=== PATIENT | female | born 1990 | race Caucasian/White ===

== ENCOUNTER 2018-04-05 08:43 | Emergency (ER) | payer MEDICAID | END 2018-04-05 09:55 | disposition home or self-care (01) | LOC: MADERS 08:43 | DX: J02.9 Acute pharyngitis, unspecified (principal) | CPT/HCPCS: 87804; 99283 ==

== ENCOUNTER 2018-06-12 11:14 | Emergency (ER) | payer MEDICAID ==
[2018-06-12 11:47] LABS: Bilirubin Small (Negative); Blood, Urine Negative (Negative); Glucose, Urine (Dipstick) 100 mg/dL (Negative); Leukocyte Large (Negative); Nitrite Positive (Negative); Protein, Urine (Dipstick) 30 mg/dL (Neg-Trace)
[2018-06-12 11:48] LABS: Clarity Clear (Clear); RBC/HPF 0-3 HPF (0-3); WBC/HPF 0-3 HPF (0-3)
[2018-06-12 11:49] LABS: Bacteria/HPF Rare-Few HPF (None Seen); Pregnancy Test - Urine (BHCG) Negative (Negative)
[2018-06-12 11:50] LABS: Pregu Control Background? CLEAR/WHITE (CLR/WHITE); Pregu Control Bar Appear? YES (CONTROL BAR)
[2018-06-12] MEDS ORDERED: Ibuprofen 800 MG TAB ONE (11:52)
== END 2018-06-12 12:05 | disposition home or self-care (01) ==
LOC: MADERS 11:14
DX: S39.82XA Other specified injuries of lower back, initial encounter (principal); Z71.6 Tobacco abuse counseling; F17.210 Nicotine dependence, cigarettes, uncomplicated; X58.XXXA Exposure to other specified factors, initial encounter
CPT/HCPCS: 81003; 81015; 81025; 87086; 99406

== ENCOUNTER 2019-03-14 06:56 | Emergency (ER) | payer BC ==
[2019-03-14] MEDS ORDERED: Ketorolac Tromethamine 30 MG/ML VIAL ONE (07:23)
[2019-03-14] MEDS ORDERED: Ondansetron PF 4 MG/2 ML Vial ONE (07:23)
[2019-03-14] MEDS ORDERED: Sodium Chloride 0.9% 1,000 ML ONE (07:23)
[2019-03-14 07:38] LABS: #Basophils 0.1 thou/uL (0.0-0.2); #Eosinphils 0.1 thou/uL (0.0-0.7); #Lymphocytes 2.1 thou/uL (1.20-3.40); #Monocytes 0.6 thou/uL (0.11-0.59); #Neutrophils 5.9 thou/uL (1.40-6.50); %Basophils 0.7 % (0.0-1.0); %Eosinophils 1.3 % (0.0-10.0); %Lymphocytes 23.7 % (21.0-51.0); %Monocytes 6.6 % (0.0-10.0); %Neutrophils 67.8 % (42.0-75.0); Hemoglobin 14.7 g/dL (12.0-16.0); Mean Corpuscular HGB CONC 32.7 g/dL (32.0-36.0); Mean Corpuscular Hemoglobin 28.2 pg (27.0-31.0); Mean Corpuscular Volume 86.1 fL (78.0-98.0); Mean Platelet Volume 6.8 fL (7.4-10.4); Platelet Count 214 thou/uL (130-400); RBC Distribution Width 12.2 % (11.5-14.5); Red Blood Cell (RBC) Count 5.21 mill/uL (4.20-5.40); White Blood Cell (WBC) Count 8.7 thou/uL (4.8-10.8)
[2019-03-14 07:48] LABS: Bilirubin Negative (Negative); Blood, Urine Trace (Negative); Clarity Clear (Clear); Glucose, Urine (Dipstick) Negative (Negative); Leukocyte Trace (Negative); Nitrite Negative (Negative); Protein, Urine (Dipstick) Negative (Neg-Trace); Urobilinogen 0.2 mg/dL (Less than 2)
[2019-03-14 07:50] LABS: BHCG - Serum Negative (NEGATIVE); Pregs Control Background? CLEAR/WHITE (CLR/WHITE); Pregs Control Bar Appear? YES (CONTROL BAR)
[2019-03-14] MEDS ORDERED: Mag-Al Plus 1200 MG/1200 MG/120 MG/30 ML UDCUP ONE (07:56)
[2019-03-14] MEDS ORDERED: Lidocaine Viscous Sol 2% 15 ml UD Cup ONE (07:56)
[2019-03-14 07:58] LABS: ALT (SGPT) 15 U/L (8-55); AST (SGOT) 12 U/L (5-34); Albumin 4.1 g/dL (3.5-5.0); Alkaline Phosphatase 59 U/L (40-110); Anion Gap 12 mmol/L (10-20); BUN (Urea Nitrogen) 10 mg/dL (7.0-18.7); Bilirubin, Total 0.4 mg/dL (0.2-1.2); CK (CPK) 45 U/L (29-168); Calc. Creatinine Clearance 0 mL/min (70-130); Calcium 9.1 mg/dL (7.8-10.44); Carbon Dioxide 24 mmol/L (22-29); Chloride 107 mmol/L (98-107); Estimated GFR-MDRD 87; Globulin 2.9 g/dL (2.4-3.5); Glucose 101 mg/dL (70-105); Lipase 36 U/L (8-78); Sodium 139 mmol/L (136-145)
[2019-03-14 08:02] LABS: Bacteria/HPF Rare-Few HPF (None Seen); RBC/HPF 0-3 HPF (0-3); WBC/HPF 0-3 HPF (0-3)
--- NOTE | 2019-03-14 08:06 | RAD ---
PORTABLE CHEST 1 VIEW: DATE: 03/14/2019. TIME: 7:37 a.m. HISTORY: Chest pain. FINDINGS: Comparison is made with the exam of 01/01/2014. The heart size is normal. The lungs are expanded without focal areas of consolidation, pneumothorace s, or pleural effusions. IMPRESSION: No radiographic evidence of acute cardiopulmonary process. POS: OFF
== END 2019-03-14 08:39 | disposition home or self-care (01) ==
LOC: MADERS 06:56
DX: R07.9 Chest pain, unspecified (principal); R11.2 Nausea with vomiting, unspecified; F17.210 Nicotine dependence, cigarettes, uncomplicated
CPT/HCPCS: 71045; 80053; 81003; 81015; 82550; 83690; 84484; 84703; 85025; 93005; 94640; 96361; 96374; 96375; J1885; J2405; J7050; J7620

== ENCOUNTER 2019-08-26 13:03 | Emergency (ER) | payer MEDICAID, SELFPAY ==
--- NOTE | 2019-08-26 14:09 | RAD ---
PORTABLE CHEST ONE VIEW: 08/26/19 at 1:53 p.m. HISTORY: Cough. COMPARISON: 03/14/19. FINDINGS: The heart size is normal. The lungs are expanded without lobar consolidation, pneumothoraces or pleur al effusions. IMPRESSION: No radiographic evidence of acute cardiopulmonary process. POS: TPC
== END 2019-08-26 14:25 | disposition home or self-care (01) ==
LOC: MADERS 13:03
DX: J20.9 Acute bronchitis, unspecified (principal); F17.210 Nicotine dependence, cigarettes, uncomplicated; F41.9 Anxiety disorder, unspecified
CPT/HCPCS: 71045; 87804

== ENCOUNTER 2019-12-10 21:22 | Emergency (ER) | payer SELFPAY ==
[2019-12-10 22:25] LABS: #Basophils 0.1 thou/uL (0.0-0.2); #Eosinphils 0.2 thou/uL (0.0-0.7); #Lymphocytes 4.4 thou/uL (1.20-3.40); #Monocytes 0.5 thou/uL (0.11-0.59); #Neutrophils 4.8 thou/uL (1.40-6.50); %Basophils 1.5 % (0.0-1.0); %Eosinophils 1.5 % (0.0-10.0); %Lymphocytes 43.9 % (21.0-51.0); %Monocytes 5.2 % (0.0-10.0); Hemoglobin 13.1 g/dL (12.0-16.0); Mean Corpuscular HGB CONC 31.5 g/dL (32.0-36.0); Mean Corpuscular Hemoglobin 27.4 pg (27.0-31.0); Mean Platelet Volume 7.1 fL (7.4-10.4); Platelet Count 264 thou/uL (130-400); RBC Distribution Width 13.2 % (11.5-14.5); Red Blood Cell (RBC) Count 4.78 mill/uL (4.20-5.40)
[2019-12-10] MEDS ORDERED: Lorazepam 2 MG/ML VIAL ONE (22:28)
[2019-12-10] MEDS ORDERED: Ketorolac Tromethamine 30 MG/ML VIAL ONE (22:28)
[2019-12-10 22:39] LABS: ALT (SGPT) 14 U/L (8-55); AST (SGOT) 15 U/L (5-34); Alkaline Phosphatase 71 U/L (40-110); Anion Gap 15 mmol/L (10-20); BUN (Urea Nitrogen) 7 mg/dL (7.0-18.7); Bilirubin, Total Less than 0.2 mg/dL (0.2-1.2); Calc. Creatinine Clearance 0 mL/min (70-130); Carbon Dioxide 23 mmol/L (22-29); Chloride 107 mmol/L (98-107); Estimated GFR-MDRD 86; Globulin 2.5 g/dL (2.4-3.5); Glucose 100 mg/dL (70-105); Potassium 3.6 mmol/L (3.5-5.1); Protein, Total 6.5 g/dL (6.0-8.3); Sodium 141 mmol/L (136-145)
--- NOTE | 2019-12-10 23:40 | RAD ---
EXAM: CHEST ONE VIEW HISTORY: Chest pain COMPARISON: 08/26/2019 FINDINGS: The cardiac silhouette and pulmonary vasculature is within normal limits. The lungs are clear. The os seous structures are intact. Chest is stable compared to prior exam. IMPRESSION: No acute cardiopulmonary process.
== END 2019-12-10 23:15 | disposition home or self-care (01) ==
LOC: MADERS 21:22
DX: R07.89 Other chest pain (principal); F41.9 Anxiety disorder, unspecified; F17.210 Nicotine dependence, cigarettes, uncomplicated
CPT/HCPCS: 71045; 80053; 84484; 85025; 85379; 93005; J1885; J2060

== ENCOUNTER 2020-07-14 21:29 | Emergency (ER) | payer SELFPAY ==
[2020-07-14 22:13] LABS: Pregnancy Test - Urine (BHCG) Negative (Negative); Pregu Control Background? CLEAR/WHITE (CLR/WHITE); Pregu Control Bar Appear? YES (CONTROL BAR); Specific Gravity 1.024 (1.002-1.036)
--- NOTE | 2020-07-14 22:19 | RAD ---
RADIOGRAPH CHEST 1 VIEW: DATE: 07/14/2020 HISTORY: 30-year-old female with dyspnea FINDINGS: There are no airspace densities, pulmonary edema, pneumothorax, or cardiomegaly. The lateral costophr enic angles are sharp. IMPRESSION: No acute cardiopulmonary findings.
[2020-07-14] MEDS ORDERED: Lorazepam 2 MG/ML VIAL ONE (22:31)
== END 2020-07-14 22:54 | disposition home or self-care (01) ==
LOC: MADERS 21:29
DX: F41.9 Anxiety disorder, unspecified (principal); F43.0 Acute stress reaction; F17.210 Nicotine dependence, cigarettes, uncomplicated
CPT/HCPCS: 71045; 81025; 96372; J2060

== ENCOUNTER 2020-08-20 23:16 | Emergency (ER) | payer MEDICAID, SELFPAY ==
[2020-08-20 23:53] LABS: Bilirubin Negative (Negative); Blood, Urine Large (Negative); Clarity Cloudy (Clear); Glucose, Urine (Dipstick) Negative (Negative); Ketone, Urine Negative (Negative); Leukocyte Moderate (Negative); Nitrite Negative (Negative); Protein, Urine (Dipstick) 100 mg/dL (Neg-Trace); Specific Gravity, Urine 1.025 (1.005-1.030); Urobilinogen 0.2 mg/dL (Less than 2)
[2020-08-20 23:55] LABS: Bacteria/HPF 1+ HPF (None Seen); Mucous/LPF 2+ LPF (<2+); WBC/HPF Greater than 50 HPF (0-3)
[2020-08-21] MEDS ORDERED: Cephalexin 500 MG CAP ONE (00:09)
== END 2020-08-21 00:24 | disposition home or self-care (01) ==
LOC: MADERS 23:16
DX: N39.0 Urinary tract infection, site not specified (principal); F17.210 Nicotine dependence, cigarettes, uncomplicated
CPT/HCPCS: 81003; 81015; 99283

== ENCOUNTER 2020-11-21 09:10 | Emergency (ER) | payer MEDICAID ==
[2020-11-22 11:37] LABS: SARS-CoV-2 PCR by NAA Not Detected (NotDetected)
== END 2020-11-21 10:11 | disposition home or self-care (01) ==
LOC: MADERS 09:10
DX: B34.9 Viral infection, unspecified (principal); J06.9 Acute upper respiratory infection, unspecified; F17.210 Nicotine dependence, cigarettes, uncomplicated; Z79.899 Other long term (current) drug therapy
CPT/HCPCS: 87804; 99283; U0003; U0005

== ENCOUNTER 2021-03-17 17:09 | Emergency (ER) | payer MEDICAID, SELFPAY ==
[2021-03-17 17:40] LABS: #Basophils 0.1 thou/uL (0.0-0.2); #Eosinphils 0.1 thou/uL (0.0-0.7); %Basophils 1.4 % (0.0-1.0); Mean Corpuscular Volume 88.8 fL (78.0-98.0)
[2021-03-17 17:53] LABS: Acetaminophen Less than 6.0 mcg/mL (10.0-30.0); Alcohol Less than 10 mg/dL (Less than 10); Salicylate Less than 8.0 mg/dL (15.0-30.0)
[2021-03-17 17:55] LABS: ALT (SGPT) 10 U/L (8-55); AST (SGOT) 11 U/L (5-34); Alkaline Phosphatase 64 U/L (40-110); Anion Gap 14 mmol/L (10-20); BUN (Urea Nitrogen) 10 mg/dL (7.0-18.7); Bilirubin, Total 0.4 mg/dL (0.2-1.2); Calc. Creatinine Clearance 0 mL/min (70-130); Calcium 9.4 mg/dL (7.8-10.44); Carbon Dioxide 21 mmol/L (22-29); Chloride 108 mmol/L (98-107); Globulin 2.9 g/dL (2.4-3.5); Glucose 88 mg/dL (70-105); Magnesium 2.2 mg/dL (1.6-2.6); Potassium 3.7 mmol/L (3.5-5.1); Protein, Total 6.9 g/dL (6.0-8.3); Sodium 139 mmol/L (136-145)
[2021-03-17 18:13] LABS: #Lymphocytes 3.3 thou/uL (1.20-3.40); #Monocytes 0.6 thou/uL (0.11-0.59); #Neutrophils 6.3 thou/uL (1.40-6.50); %Eosinophils 1.2 % (0.0-10.0); %Lymphocytes 31.4 % (21.0-51.0); %Monocytes 5.5 % (0.0-10.0); %Neutrophils 60.5 % (42.0-75.0); Hemoglobin 14.9 g/dL (12.0-16.0); Mean Corpuscular HGB CONC 31.6 g/dL (32.0-36.0); Mean Corpuscular Hemoglobin 28.1 pg (27.0-31.0); Mean Platelet Volume 7.2 fL (7.4-10.4); Platelet Count 263 thou/uL (130-400); RBC Distribution Width 12.4 % (11.5-14.5); Red Blood Cell (RBC) Count 5.29 mill/uL (4.20-5.40); White Blood Cell (WBC) Count 10.5 thou/uL (4.8-10.8)
[2021-03-17 18:33] LABS: Amphetamine Detected (NotDetected); Barbiturates Screen Not Detected (NotDetected); Benzodiazepine Screen Detected (NotDetected); Cocaine Metabolite Screen Not Detected (NotDetected); Medtox Control Line Valid? VALID (VALID); Methadone Not Detected (NotDetected); Methamphetamine Not Detected (NotDetected); Opiate Screen Not Detected (NotDetected); Oxycodone Screen Not Detected (NotDetected); Phencyclidine (PCP) Not Detected (NotDetected); THC/Cannabinoid Screen Not Detected (NotDetected); Tricyclic Screen Not Detected (NotDetected)
== END 2021-03-17 18:33 | disposition home or self-care (01) ==
LOC: MADERS 17:09
DX: F41.9 Anxiety disorder, unspecified (principal); R07.89 Other chest pain; F17.210 Nicotine dependence, cigarettes, uncomplicated; Z79.899 Other long term (current) drug therapy
CPT/HCPCS: 71045; 80053; 80306; 80307; 83735; 84484; 85025; 93005

== ENCOUNTER 2021-04-28 05:30 | Emergency (ER) | payer MEDICAID, SELFPAY ==
[2021-04-28 05:51] LABS: #Basophils 0.1 thou/uL (0.0-0.2); #Eosinphils 0.1 thou/uL (0.0-0.7); #Lymphocytes 1.9 thou/uL (1.20-3.40); #Monocytes 0.4 thou/uL (0.11-0.59); #Neutrophils 4.1 thou/uL (1.40-6.50); %Basophils 1.3 % (0.0-1.0); %Eosinophils 1.6 % (0.0-10.0); %Lymphocytes 28.5 % (21.0-51.0); %Monocytes 6.7 % (0.0-10.0); %Neutrophils 61.9 % (42.0-75.0); Hemoglobin 14.5 g/dL (12.0-16.0); Mean Corpuscular HGB CONC 32.1 g/dL (32.0-36.0); Mean Corpuscular Volume 87.4 fL (78.0-98.0); Platelet Count 226 thou/uL (130-400); RBC Distribution Width 12.5 % (11.5-14.5); Red Blood Cell (RBC) Count 5.18 mill/uL (4.20-5.40); White Blood Cell (WBC) Count 6.6 thou/uL (4.8-10.8)
[2021-04-28 06:00] LABS: BHCG - Serum Negative (NEGATIVE); Pregs Control Background? CLEAR/WHITE (CLR/WHITE); Pregs Control Bar Appear? YES (CONTROL BAR)
[2021-04-28] MEDS ORDERED: Ketorolac Tromethamine 30 MG/ML VIAL ONE (06:00)
[2021-04-28] MEDS ORDERED: Ondansetron PF 4 MG/2 ML Vial ONE (06:00)
[2021-04-28] MEDS ORDERED: Lactated Ringer's 1,000 ML ONE (06:00)
[2021-04-28 06:12] LABS: ALT (SGPT) 14 U/L (8-55); AST (SGOT) 14 U/L (5-34); Albumin 3.9 g/dL (3.5-5.0); Alkaline Phosphatase 65 U/L (40-110); Anion Gap 14 mmol/L (10-20); BUN (Urea Nitrogen) 8 mg/dL (7.0-18.7); Bilirubin, Total 0.7 mg/dL (0.2-1.2); Calc. Creatinine Clearance 0 mL/min (70-130); Calcium 8.5 mg/dL (7.8-10.44); Carbon Dioxide 22 mmol/L (22-29); Chloride 106 mmol/L (98-107); Globulin 2.7 g/dL (2.4-3.5); Glucose 100 mg/dL (70-105); Potassium 3.9 mmol/L (3.5-5.1); Protein, Total 6.6 g/dL (6.0-8.3); Sodium 138 mmol/L (136-145)
[2021-04-28 07:11] LABS: Bacteria/HPF 1+ HPF (None Seen); Bilirubin Negative (Negative); Blood, Urine Negative (Negative); Clarity Slightly Cloudy (Clear); Glucose, Urine (Dipstick) Negative (Negative); Ketone, Urine Negative (Negative); Leukocyte Trace (Negative); Nitrite Negative (Negative); Protein, Urine (Dipstick) Negative (Neg-Trace); RBC/HPF 0-3 HPF (0-3)
== END 2021-04-28 07:23 | disposition home or self-care (01) ==
LOC: MADERS 05:30
DX: R10.11 Right upper quadrant pain (principal); F17.210 Nicotine dependence, cigarettes, uncomplicated
CPT/HCPCS: 74176; 80053; 81003; 81015; 83690; 84703; 85025; 96374; 96375; J1885; J2405; J7120

== ENCOUNTER 2021-10-02 17:38 | Emergency (ER) | payer SELFPAY | END 2021-10-02 18:50 | disposition home or self-care (01) | LOC: MADERS 17:38 | DX: S93.411A Sprain of calcaneofibular ligament of right ankle, initial encounter (principal); F17.210 Nicotine dependence, cigarettes, uncomplicated; W18.39XA Other fall on same level, initial encounter; Y92.009 Unspecified place in unspecified non-institutional (private) residence as the place of occurrence of the external cause ==

== ENCOUNTER 2022-03-15 14:34 | Emergency (ER) | payer SELFPAY | END 2022-03-15 15:15 | disposition left against medical advice (07) | LOC: MADERS 14:34 | DX: Z53.21 Procedure and treatment not carried out due to patient leaving prior to being seen by health care provider (principal) ==

== ENCOUNTER 2023-10-24 21:24 | Emergency (ER) | payer OTHER, SELFPAY ==
[2023-10-24] MEDS ORDERED: Ketorolac Tromethamine 30 MG (1 mL) VIAL ONE (21:48)
[2023-10-24] MEDS ORDERED: Amoxicillin/Potassium Clav 875 MG TAB ONE (21:48)
[2023-10-24] MEDS ORDERED: traMADol HCl 50 MG TAB ONE (22:01)
== END 2023-10-24 22:10 | disposition home or self-care (01) ==
LOC: MADERS 21:24
DX: K08.89 Other specified disorders of teeth and supporting structures (principal); R50.9 Fever, unspecified; F17.290 Nicotine dependence, other tobacco product, uncomplicated
CPT/HCPCS: 96372; 99283; J1885